=== PATIENT | female | born 1950 | race Caucasian/White ===

== ENCOUNTER 2020-11-20 13:21 | Emergency (ER) | payer MEDICARE ==
[~2020-11-20] VITALS: Ht 157.5 cm; Wt 67.3 kg
[2020-11-20 13:34] VITALS: TEMP 97.1
[2020-11-20] MEDS ORDERED: NEURAPTINE30 ML TOP (14:03)
[2020-11-20] MEDS ORDERED: LOPRESSOR 550 MG/TAB PO (14:04)
[2020-11-20] MEDS ORDERED: EFFEXOR-XR150 MG PO (14:05)
[2020-11-20] MEDS ORDERED: PROAIR HFA0.09 MG/AC IH (14:05)
[2020-11-20] MEDS ORDERED: NEURONTIN300 MG/CAP PO (14:05)
[2020-11-20] MEDS ORDERED: REQUIP 1MG T1 MG/TAB PO (14:06)
[2020-11-20] MEDS ORDERED: KLOR-CON M2020 MEQ PO (14:06)
[2020-11-20] MEDS ORDERED: PRAVACHOL 40MG40 MG PO (14:07)
[2020-11-20] MEDS ORDERED: LIORESAL 1010 MG/TAB PO (14:07)
[2020-11-20] MEDS ORDERED: BUSPAR10 MG PO (14:07)
[2020-11-20] MEDS ORDERED: MYRBETR50MG PO (14:08)
[2020-11-20] MEDS ORDERED: PRINIVIL10 MG PO (14:08)
[2020-11-20] MEDS ORDERED: PRILOSEC 20MG20 MG PO (14:08)
[2020-11-20] MEDS ORDERED: CLARITIN 1010 MG/TAB PO (14:09)
[2020-11-20] MEDS ORDERED: VISTARIL 2525 MG/CAP PO (14:09)
[2020-11-20] MEDS ORDERED: TAB-A-VITE MUL1 EAC1 PO (14:10)
[2020-11-20] MEDS ORDERED: VITAMIN D 400400 IU PO (14:10)
[2020-11-20] MEDS ORDERED: NORCO 325 MG-51 TAB PO (14:11)
[2020-11-20] MEDS ORDERED: VALTREX1 GM PO (14:45)
[2020-11-20] MEDS ORDERED: MEDROL 4MG DOSPA4 MG PO (14:45)
[2020-11-20] MEDS ORDERED: PERCOCET 325 MG1 TA2 PO (14:45)
[2020-11-20 15:15] VITALS: BP 145/81; PULSE 80
== END 2020-11-20 15:20 | disposition home or self-care (01) ==
LOC: COL.ER 13:21
DX: M54.32 Sciatica, left side (principal); B02.9 Zoster without complications; I10 Essential (primary) hypertension; E78.5 Hyperlipidemia, unspecified; F32.9 Major depressive disorder, single episode, unspecified; K21.9 Gastro-esophageal reflux disease without esophagitis; F17.210 Nicotine dependence, cigarettes, uncomplicated; Z79.899 Other long term (current) drug therapy

== ENCOUNTER → 2021-04-28 | Outpatient (CLI) | payer MEDICARE ==
[~2021-04-28] MED LIST: BUSPAR10 MG PO; CLARITIN 1010 MG/TAB PO; EFFEXOR-XR150 MG PO; KLOR-CON M2020 MEQ PO; LIORESAL 1010 MG/TAB PO; LOPRESSOR 550 MG/TAB PO; MEDROL 4MG DOSPA4 MG PO; MYRBETR50MG PO; NEURAPTINE30 ML TOP; NEURONTIN300 MG/CAP PO; NORCO 325 MG-51 TAB PO; PERCOCET 325 MG1 TA2 PO; PRAVACHOL 40MG40 MG PO; PRILOSEC 20MG20 MG PO; PRINIVIL10 MG PO; PROAIR HFA0.09 MG/AC IH; REQUIP 1MG T1 MG/TAB PO; TAB-A-VITE MUL1 EAC1 PO; VALTREX1 GM PO; VISTARIL 2525 MG/CAP PO; VITAMIN D 400400 IU PO
== END ==
LOC: COL.RAD 13:01
DX: Z12.2 Encounter for screening for malignant neoplasm of respiratory organs (principal); E04.1 Nontoxic single thyroid nodule; F17.200 Nicotine dependence, unspecified, uncomplicated